=== PATIENT | female | born 1945 | race Caucasian/White ===

== ENCOUNTER 2021-11-22 13:52 | Outpatient (CLI) | payer MEDICARE, SELFPAY ==
--- NOTE | ~2021-11-22 | CT_ITS ---
EXAMINATION: CT shoulder RT wo con DATE: 11/22/2021 14:44 INDICATION: Right glenohumeral joint osteoarthritis. TECHNIQUE: Computed tomography (CT) of the right shoulder was performed without intravenous contrast. Automated exposure control and iterative reconstruction technique were employed. The dose-length pro duct was 479.95 mGy-cm. COMPARISON: None FINDINGS: There is mild atelectasis in right lung. Bone alignment is normal. No fracture. There is se kylee osteoarthritis of glenohumeral joint including bone volume loss of glenoid. There is mild acromi oclavicular joint osteoarthritis. There is a moderate-sized glenohumeral joint effusion with loose alvino dy. There is volume loss and mild fatty atrophy of supraspinatus and infraspinatus muscle bellies. Th ere is mild fatty atrophy of subscapularis muscle belly. IMPRESSION: 1. Severe glenohumeral joint osteoarthritis. 2. Moderate-sized glenohumeral joint effusion with loose body. Reviewed, dictated and finalized at location A.
== END 2021-11-22 13:53 | disposition home or self-care (01) ==
PROVIDERS: PCP Internal Medicine; Visit Provider Orthopaedic Surgery
DX: M19.011 Primary osteoarthritis, right shoulder (principal); M25.411 Effusion, right shoulder
CPT/HCPCS: 73200

== ENCOUNTER 2022-01-04 11:51 | Outpatient (CLI) | payer MEDICARE, SELFPAY | END 2022-01-04 11:52 | disposition home or self-care (01) | LOC: ANHSURGERY 11:56 | PROVIDERS: PCP Internal Medicine; Visit Provider Orthopaedic Surgery | DX: M12.811 Other specific arthropathies, not elsewhere classified, right shoulder (principal); Z01.818 Encounter for other preprocedural examination | CPT/HCPCS: 87081 ==

== ENCOUNTER 2022-01-23 00:06 | Day surgery (SDC) | payer MEDICARE, SELFPAY ==
--- NOTE | 2022-01-04 12:00 | PC.NURSE ---
Report to the Outpatient Waiting Room, entrance under the green pavilion located off [facility], at time _0600_ on date _01/23/22_. OR Time: _0730_. - You and your visitor will be asked a series of questions to screen for COVID 19 for your protection. - Only one visitor is allowed at this time. - The patient visitor is requested to leave or wait in car when not with patient. - A mask is required within the hospital. Patients may have clear liquids (water, carbonated beverages, clear teas, apple juice) until 3 hours prior to surgery (0430 AM) with a maximum of 20 ounces. - No food from midnight until time of surgery Take the following medications with a SIP of water the morning of surgery: __AMLODIPINE, GABAPENTIN, INHALER, TYLENOL IF NEEDED__ Medications to discontinue per DR. PETER _IBUPROFEN 7 DAYS PRIOR TO SURGERY, Date to take last dose 01/15/22_ Please no make-up, nail french, hairspray, perfume, deodorant, or body powder the day of surgery. No jewelry (including any body piercings) or valuables the day of surgery, leave them at home. Please take a shower or bath the night before, or the morning of, surgery with an antibacterial soap. Wear comfortable, loose fitting clothing. - Jewelry must be removed prior to entering the operating room. Rings and piercings that are not removed may be cut off. - The hospital will not accept responsibility for valuables. - Please leave all valuables, including medications, at home the day of surgery. If you are going home after surgery, a licensed local company tanker driver must drive you home. - NO public transportation without another adult. - We recommend that an adult stay with you for 24 hours following discharge. - We also recommend that you do not drive, make important decision, drink alcoholic beverages, or take any drugs that were not prescribed by your health care provider for at least 24 hours after your discharge time. Follow any additional instructions given to you from your surgeon. If you or anyone in your household have experienced Covid symptoms in the past week, please notify your surgeon or the nurse liaison at the phone number below for possible testing. Instructions given to ___PT & DAUGHTER (ARLEY) and asked if any additional questions and then verbalized understanding. Patient advised to call surgeon office or pre surgery nurse liaison [phone] if any additional questions.
[2022-01-04 12:15] VITALS: BP 152/70; PULSE 96; RESP 20; TEMP 37.3; O2SAT 95; BMI 25.9
--- NOTE | 2022-01-22 11:20 | WPDANESEPPF ---
Anes - Initial Pre Proc Eval Procedure: Operation Date: 01/23/22 07:30 Proposed Procedures p Right Reverse Total Shoulder Arthroplasty - Rick Dick MD Date/Time: 01/22/22 11:20 Surgeon: Rick Dick MD Pre Op Diagnosis: Rt Rot Cuff Arthrotathy Patient Data Age: 76 Gender: F Height: 1.42 m Weight: 52.5 kg Last Vital Signs Temp 37.3 C 01/04/22 12:15 Pulse 96 01/04/22 12:15 Resp 20 01/04/22 12:15 BP 152/70 H 01/04/22 12:15 Pulse Ox 95 01/04/22 12:15 O2 Del Method Room Air 01/04/22 12:15 Allergies Allergy/AdvReac Type Severity Reaction Status Date / Time vancomycin Allergy kidney Verified 01/23/22 06:30 failure Home Medications Medication Instructions Recorded Confirmed Type acetaminophen 500 mg capsule 1,000 mg PO Q6H PRN Pain 09/01/21 01/23/22 History amlodipine 10 mg tablet 10 mg PO DAILY 09/01/21 01/23/22 History budesonide-formoterol HFA 160 2 puff inhalation Q12H 09/01/21 01/23/22 History mcg-4.5 mcg/actuation aerosol inhaler (Symbicort) duloxetine 60 mg capsule,delayed 60 mg PO HS 09/01/21 01/23/22 History release gabapentin 600 mg tablet 600 mg PO BID 09/01/21 01/23/22 History ibuprofen 800 mg tablet 600 mg PO Q6H PRN Pain 09/01/21 01/23/22 History lamotrigine 200 mg tablet 200 mg PO HS 09/01/21 01/23/22 History (Lamictal) trazodone 100 mg tablet 100 mg PO QHS PRN Sleep 09/01/21 01/23/22 History Patient hx anesthesia problems: none Family hx anesthesia problems: none Results Review: All pre-operative results and documents have been reviewed as part of the pre-operative evaluation. [facility] Past Medical History Medical History (Updated 01/22/22 @ 11:21 by Bandar Roberts MD) Anxiety Asthma CAD (coronary artery disease) Depression Hyperlipidemia Hypertension Osteoarth NOS-l/leg Osteoporosis Surgical History Surgical History History of appendectomy History of arthroscopic knee surgery History of cholecystectomy History of hysteroscopy History of inguinal hernia repair History of spinal fusion Social History Social History Smoking status: Never smoker Second hand tobacco smoke exposure: No Alcohol intake: never Substance use: never Substance use type: does not use Living arrangements: alone Spiritual care concerns: No Anes - Eval Final PreProcedure Day of Procedure 01/22/22 11:20 Patient weight: normal Heart: regular rate and rhythm Lungs: clear to auscultation and normal air movement Airway: Mallampati scale class II Neurological: alert and oriented Last oral intake: >/= 8 hours ASA classification: III Emergent: no Anesthetic plan: proceed Anesthesia type and monitoring: general ETT Results Review: All pre-operative results and documents have been reviewed as part of the pre-operative evaluation. Informed Consent: The patient's anesthetic plan and its attendant risks and benefits were discussed with the patient/family/POA. Questions were solicited and answers provided to the satisfaction of the patient/family/POA.
--- NOTE | 2022-01-22 11:22 | WPDANESPNB ---
Anes - Peripheral Nerve Block Date/Time: 01/22/22 11:22 I have discussed with the patient/family/POA the placement of a peripheral nerve block for post-operative pain management, including associated risks, benefits, complications, and side effects. Alternative methods of post-operative analgesia were detailed. Questions were solicited and answers provided to the satisfaction of the patient/family/POA. Time-Out: A pre-procedural Time-Out was completed immediately before starting the procedure and confirmed: Patient Identification, Site, Procedure, Patient Position and the Availability of Requisite Equipment. Clinical Indications: Acute post-operative pain management requested by the operative surgeon. Nerve Block Insertion Note Anes-nerve block: supraclavicular right Patient position: supine Skin prep: chlorhexidine Needle: 22 gauge, stimulating, insulated echogenic needle. Needle length: 80 mm Technique: ultrasound (in plane) Injectate: bupivacaine 0.5% with epi 5 mcg/ml (20cc) Observations: tolerated well Complications: none Procedure start time:: 720 Procedure end time:: 725
[2022-01-23] VITALS (16 sets, daily range): BP systolic 123–163; BP diastolic 44–102; PULSE 87–114; RESP 16–20; TEMP 36.3–36.9; O2SAT 92–99
--- NOTE | ~2022-01-23 | XR_ITS ---
EXAMINATION: XR shoulder RT min 2V DATE: 01/23/2022 10:44 INDICATION: Reverse total right shoulder arthroplasty. Postop. TECHNIQUE: 2 views of right shoulder were obtained. COMPARISON: Right shoulder CT 11/22/2021 FINDINGS: There is a reverse psyu-cij-naymey total right shoulder arthroplasty in near-anatomic align ment. No fracture. Acromioclavicular joint is normal. There is gas in the soft tissues. A surgical dr blessing is noted. IMPRESSION: 1. Reverse jahb-zit-ucvfhk total right shoulder arthroplasty in near-anatomic alignment. Reviewed, dictated and finalized at location A. IMPRESSION: 1. Reverse uolq-sgy-sybjjk total right shoulder arthroplasty in near-anatomic a lignment.
[2022-01-23] MEDS: ACETAMINOPHEN 500 MG TABLET 1000 MG PO (06:57)
[2022-01-23] MEDS: LACTATED RINGERS 1,000 ML 30 ML IV CONT ×2 (07:12→10:27)
[2022-01-23] MEDS: TRANEXAMIC ACID 1,000MG/ISO100 1,000 MG/100 ML BAG 200 MG IVPB (07:15)
--- NOTE | 2022-01-23 07:17 | WPDHPUPDATE1 ---
History and Physical Update Update Date/Time: 01/23/22 07:17 History and Physical has been reviewed, including an updated exam of the patient. There are NO changes in the patient's condition. Risks, benefits, and alternatives have been discussed and questions answered. Patient agrees to proceed with procedure.
[2022-01-23] MEDS: ceFAZolin 2 GM/D5W 50 ML 2 GM/50 ML BAG IVPB ×2 (07:36→15:49)
--- NOTE | 2022-01-23 13:53 | ADMGEN ---
This patient, Reva Horton, was admitted to 2 Medical Room 242-. Patient/family oriented to hospital policies and general routines including ID bracelet, bed and alarms, visiting hours, pain management, procedures, bathroom and other care routines, personal items, smoking policy, room service/diet, and visiting hours. Information on how to activate the Rapid Response Team has been discussed. Patient/Family are encouraged to report perceived risks to care and to ask questions if they do not understand what they are told or what they should do.
--- NOTE | 2022-01-23 15:07 | W.PM.PROC2 ---
Procedure Note - Detailed Date of Procedure 01/23/22 Pre-op Diagnosis Right shoulder rotator cuff arthropathy. Post-op Diagnosis Same Procedure Performed Reverse total shoulder arthroplasty, right shoulder. Surgeon Rick Dick MD Immigration Judge Traci Siegel PA-C Anesthesia General and Regional (Interscalene block.) Findings End-stage arthrosis with severe medial and superior erosion of the glenoid. Small stature. Good bone quality. Extensive inferior osteophytes at the glenoid and a calcified body in the inferior capsule carefully resected. 15 degree augment used at the posterior superior quadrant. This allowed for minimal glenoid reaming. Plus three mm glenoid. 33 mm diameter. Excellent final stability. Subscapularis did not reduce adequately for repair. Description of Procedure The patient was given an interscalene block in the preoperative area. Preoperative antibiotics were given. The patient was transferred to the operating room and a general anesthetic was administered. The beach chair position was used at 45 degrees. All bony prominences were padded. The head was carefully stabilized on the [facility] truck loader overhead crane. A sterile prep and drape was performed in the usual manner with ChloraPrep. A longitudinal incision was created at the anterior shoulder just lateral to the deltopectoral interval. Hydrogen peroxide was placed on the incision and then rinsed after one minute. Careful dissection was performed to expose the interval and protect the cephalic vein. The vein was retracted medially. The upper border of the pectoralis was not released. Anterior circumflex vessel branches were suture ligated. The biceps was tenodesed. A subscapularis tenotomy was performed. The inferior capsule was released, exposing the humeral head. Osteophytes were removed. Care was taken to stay on bone to protect the axillary nerve. The anatomic head cut was taken with the oscillating saw. The guide pin was placed, central drilling performed, and the broach trial inserted. The neck anteversion and inclination were carefully assessed. The cut protector was placed, and attention was turned to the glenoid. Retractors were placed. Releases were carried out for exposure. The subscapularis was mobilized, the inferior capsule and long head of triceps released, and the superior and middle glenohumeral ligaments released as well. Labral tissue was resected as needed. The sizing template was used to assess the baseplate position low on the glenoid. A guide pin was placed. Minimal reaming was used to accomplish a flat surface without violating the subchondral bone. Version was corrected according to preoperative templating. The boss was drilled, and the real component was impacted into position. Supplemental locking screws were placed centrally, superiorly, and inferiorly. The glenosphere was impacted into the taper. The proximal humerus was reamed for the inset component. The humeral components were trialed. The real humeral stem, tray, and insert were impacted into position. The shoulder was copiously irrigated periodically with pulsatile lavage. The shoulder was reduced and stability confirmed. 1 gram of Vancomycin powder was placed in the joint. The deltopectoral space was reapproximated with number 1 Vicryl. The remaining tissue was closed with 0 Quill and 2-0 Quill running suture and steri-strips. A sterile silver occlusive dressing and shoulder immobilizer were placed. The patient was transferred to the recovery room. Physician maintenance assistant, Traci Siegel PA-C, required for surgery; including patient positioning, draping, tissue retraction, maintaining instrument position, wound closure, and dressing placement. Implants Shoulder Innovations reverse TSA size 0 stem. +0 polyethylene insert. 15 degree augmented baseplate. 33 +3 mm glenosphere. Estimated Blood Loss -150.0 Drains No Pathology None sent Complications No immediate complications Condition Stable Disposition
[2022-01-23] MEDS: GABAPENTIN 300 MG CAPSULE 600 MG PO (16:21)
[2022-01-23] MEDS: ASPIRIN 81 MG ENTERIC TABLET PO (16:21)
[2022-01-23] MEDS: SENNA/DOCUSATE SODIUM TABLET 2 TAB PO (16:22)
[2022-01-23] MEDS: lamoTRIgine 100 MG TABLET 200 MG PO (19:08)
[2022-01-23] MEDS: FLUTICASONE/SALMETEROL 115-21 MCG INHALER 1 PUFF 2 PUFF INHALATION (19:08)
[2022-01-23] MEDS: traZODone HCL 50 MG TABLET 100 MG PO (19:08)
[2022-01-23] MEDS: DULoxetine HCL 60 MG CAPSULE.DR PO (19:08)
[2022-01-23] MEDS: FAMOTIDINE 20 MG TABLET PO (19:57)
[2022-01-24 02:21] VITALS: BP 137/56; PULSE 82; RESP 16; TEMP 36.9; O2SAT 93
--- NOTE | 2022-01-24 05:30 | PCRCNOTE ---
Therapist went to scan mdi at 2030 on 01/23/22, but medication had already been scanned by MIREYA LOWRY. When asked, pt denied an inhaler being given to her. Pt went on to tell therapist she did not want any inhalers because she does not use any at home other than her rescue albuterol. Pt stated she hasn't used that in months.
[2022-01-24] MEDS: oxyCODONE HCL (*CRX) 5 MG TAB IR PO ×2 (06:02→07:51)
[2022-01-24 06:50] VITALS: BP 134/72; PULSE 94; RESP 16; TEMP 36.8; O2SAT 93
[2022-01-24] MEDS: CYCLOBENZAPRINE HCL 10 MG TABLET PO (07:55)
--- NOTE | 2022-01-24 07:55 | PC.NURSE ---
Oxycodone 5mg was given at 0600 for pain level of 6. Patient up to an 8-9 at 0730 working with PT/OT. A second 5 mg tablet of oxycodone was given to equal the 10 mg dose ordered for pain level of 7-10. Explained to patient that she would have to wait 4 hours from this dose to receive any other pain medications.
--- NOTE | 2022-01-24 08:17 | PM.DS ---
DS: Admitting Diagnosis Discharge Date 01/24/22 Admitting Diagnosis Rotator cuff arthropathy. DS: Discharge Diagnosis Discharge Diagnosis (1) Status post reverse total arthroplasty of right shoulder: Code(s): Z96.611 - Presence of right artificial shoulder joint Status: Acute Assessment and Plan: Postop day 1: Right reverse total shoulder arthroplasty. Patient tolerated procedure well. Drain removed this morning. No complications. Pain manageable with pain medication. No numbness or tingling. Block has warn off. We had a lengthy discussion regarding postoperative wound care, limitations, expectations, and exercises. Patient shows good understanding. She has had initial physical therapy and is tolerating it well. DVT prophylaxis: 81 mg baby aspirin b.i.d. for 14 days. Pain medication: Percocet. Patient has followup appointment with Dr. Dick in 3 weeks. DS: Summary Hospital Course Hospital Course: Patient tolerated surgery well. Drain was placed and removed this AM. Pain is controlled. Has had PT/OT. Status at Discharge Functional status at discharge: independent ambulation Overall status at discharge: patient is progressing back to baseline Time Spent with Patient Time attestation: Total time spent providing and/or coordinating discharge services: Exam Narrative: Normal weight Female. Resting comfortably in chair. Wearing sling. Dressing dry and intact with no drainage. Mild swelling. Moderate ecchymosis. No erythema. No hematoma. Range of motion limited due to pain. Calf nontender. Neurologic status intact. No varicosities. Distal pulses palpable. Discharge Plan Discharge Patient Disposition: Home, Self-Care Discharge Instructions: See green instruction sheets. Stand Alone Forms: General Discharge Instructions Follow-up/Referrals: Traci Siegel PA [Physician Manager Applied] - Discharge Medications: New oxycodone-acetaminophen 5-325 mg tablet 1 - 2 tablet PO Q4-6H MDD 6 PRN (Reason: pain) Qty: 30 0RF aspirin 81 mg tablet,delayed release (DR/EC) 81 mg PO BID 14 Days Qty: 28 0RF Continued acetaminophen 500 mg capsule 1,000 mg PO Q6H PRN (Reason: Pain) amlodipine 10 mg tablet 10 mg PO DAILY duloxetine 60 mg capsule,delayed release(DR/EC) 60 mg PO HS gabapentin 600 mg tablet 600 mg PO BID ibuprofen 800 mg tablet 600 mg PO Q6H PRN (Reason: Pain) lamotrigine [Lamictal] 200 mg tablet 200 mg PO HS budesonide-formoterol [Symbicort] 160-4.5 mcg/actuation HFA aerosol inhaler 2 puff inhalation Q12H trazodone 100 mg tablet 100 mg PO QHS PRN (Reason: Sleep)
[2022-01-24] MEDS: ASPIRIN 81 MG ENTERIC TABLET PO (08:32)
[2022-01-24] MEDS: SENNA/DOCUSATE SODIUM TABLET 2 TAB PO (08:32)
[2022-01-24] MEDS: ceFAZolin 2 GM/D5W 50 ML 2 GM/50 ML BAG IVPB ×2 (08:32)
[2022-01-24] MEDS: FAMOTIDINE 20 MG TABLET PO (08:33)
[2022-01-24] MEDS: polyethylene glycoL 3350 17 GM POWD.PACK PO (08:33)
[2022-01-24] MEDS: GABAPENTIN 300 MG CAPSULE 600 MG PO (08:33)
[2022-01-24] MEDS: amLODIPine BESYLATE 5 MG TABLET 10 MG PO (08:33)
[2022-01-24 10:58] VITALS: BP 132/59; PULSE 91; RESP 18; TEMP 36.8; O2SAT 92
[2022-01-24] MEDS: oxyCODONE HCL (*CRX) 5 MG TAB IR 10 MG PO (11:39)
--- NOTE | 2022-01-24 12:54 | WPDANESPN ---
Anes - Prog Note Post-Op Date/Time: 01/24/22 12:54 Cardiovascular status: normal Respiratory status: normal Airway patency: baseline Mental status: baseline Post-Op hydration status: normal Vital Signs: Last Vital Signs Temp 98.3 F 01/24/22 10:58 Pulse 91 01/24/22 10:58 Resp 18 01/24/22 10:58 BP 132/59 L 01/24/22 10:58 Pulse Ox 92 01/24/22 10:58 O2 Del Method Room Air 01/24/22 08:30 O2 Flow Rate 2 01/23/22 14:33 Pain Score (VAS): 07/03 I/O: Intake & Output 01/23/22 01/24/22 01/24/22 23:59 07:59 15:59 Intake Total 490 350 240 Output Total 500 860 Balance -10 -510 240 Post-procedural complaints: none Patient Feedback: Patient satisfied with anesthetic care.
== END 2022-01-24 13:40 | disposition home or self-care (01) ==
LOC: ANHSURGERY 06:02 → ANH2MED 12:34
PROVIDERS: PCP Internal Medicine; Visit Provider Orthopaedic Surgery
PROC: (CPT 23472; principal; 2022-01-23 07:30)
DX: M12.811 Other specific arthropathies, not elsewhere classified, right shoulder (principal); G89.18 Other acute postprocedural pain; J45.909 Unspecified asthma, uncomplicated; I10 Essential (primary) hypertension; I25.10 Atherosclerotic heart disease of native coronary artery without angina pectoris; E78.5 Hyperlipidemia, unspecified; F41.9 Anxiety disorder, unspecified; M81.0 Age-related osteoporosis without current pathological fracture; Z98.1 Arthrodesis status; Z79.51 Long term (current) use of inhaled steroids
CPT/HCPCS: 23472; 64415; 36415; 73030; 86850; 86900; 86901; 87081; 97110; 97161; 97165; 97530; 97535; A4565; A9270; J0131; J0171; J0690; J1100; J1170; J1885; J2270; J2405; J2704; J2710; J2795; J3370; J7120